=== PATIENT | female | born 1985 | race Caucasian/White ===

== ENCOUNTER 2023-01-14 13:02 | Outpatient (CLI) | payer OTHER ==
[2023-01-14 14:22] VITALS: BP 128/80
--- NOTE | 2023-01-14 14:22 | SLEEP CARE CONSULTATION ---
Information from patient questionnaire entered by Fito Stewart. I have reviewed and concur with the information entered by Fito Stewart. This document represents the service I personally performed and the decisions made by me, Asia Ramey ARNP. History of Present Illness Service Date and Time: 01/14/2023 1302 Reason for Visit: New patient, Previously diagnosed sleep apnea Accompanied by: Spouse Chief Complaint: reports: Other (SLEEP STUDY AND TITRATION STUDY COMPLETE) Date of Onset: YRS Usual bedtime: 9PM Time it takes to fall asleep: 30-60MINS Snores at night: Yes Observed to quit breathing while asleep: Yes Sleeps alone due to snoring: No Number of times waking at night: 2-3 Reasons for waking at night: reports: Gasping for air Toss, Turn, or Twitch while sleeping: Yes Recalls having dreams: Yes Usually gets out of bed at: 6AM Feels refreshed in the morning: No Morning headache: Yes (AFTER TYLENOL AND COFFEE) Sleepy or fatigued during the day: Yes Ever fallen asleep while driving: No Takes day naps: Yes Dreams during day naps: No Prior sleep studies: Yes Year and Where: 04/29/2022 [facility] [place] Additional HPI information: I had the pleasure of seeing JANNA OLVERA today. JANNA OLVERA was diagnosed to have severe, AHI 43.2, obstructive sleep apnea-hypopnea syndrome as seen in a sleep study dated 04/2022 through [facility] and comes in today with spouse to establish care for CPAP therapy. Patient also went through a titration study which showed optimal apnea control at 10 cm H2O. She had to move from the area before they could set her up with a CPAP machine. Her father, who has sleep apnea but does not use his machine, gave her his CPAP ResMed Airsense 10 to use that he had received in around 2018. This machine was adjusted to the 10 cm H2O and she has been using it nightly ever since. - Parasomnia Symptoms Ever been unable to move upon waking from sleep: No Walks in sleep: No Talks in sleep: Yes Ever acted out dreams in sleep: No Ever felt weak in the knees when startled or emotional: Yes (has not fallen down) Bothered by creepy, crawly, restless sensations in legs: Yes (restless legs resolved with CPAP) Problems with memory or concentration: Yes (improved with CPAP use) Subjective Patient concerns: denies: aerophagia, mask discomfort, air blowing in eyes, mask leak noise, condensation in mask/hose, nasal congestion, dry mouth, nose, throat, epistaxis Observed to snore while using device: No Current pressure setting perceived as: comfortable On therapy, patient: reports: sleeping better, awakening more refreshed, being more awake and alert during the day, more rested overall. 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 Patient is and lives in [place]. Have you smoked in the past 12 months: No Years of smokin Quit date: 2020 Alcohol use: No Caffeine use: Yes Caffeine amount and frequency: 1 CUP COFFEE/TEA DAILY Family History Family history of sleep disordered breathing: Yes Family Hx Sleep Apnea: Mother: Snoring, Sleep apnea - Treated, Father: Snoring, Sleep apnea - Treated, Sibling: Snoring Allergies and Home Medications Known drug allergies: Yes (CODIENE, SHELLFISH) Drug allergies reviewed: Yes Home medication list reviewed: Yes (see updated list in EMR) Review of Systems Weight gain over past 5 years: 30, since on prednisone in last 1.5 years Weight loss over past 5 years: 60 Cardiovascular: denies: high blood pressure Respiratory: reports: shortness of breath, wheeze Gastrointestinal: reports: heartburn, nausea Neurological: denies: headaches Psychiatric: reports: anxiety, depression, other (PTSD) Ear/Nose/Throat: reports: nasal congestion, nose bleeds, dry mouth/throat. denies: tonsillectomy Endocrine: reports: thyroid disease, sluggishness, too hot or cold, excessive thirst Musculoskeletal: reports: joint pain, back pain, muscle pain or cramping Immunologic: reports: sneezing, allergies to food or environment Physical Exam Vital signs obtained and entered by: FITO Hensley MA Blood Pressure: 128/80 (LEFT ARM) Cuff size: regular Heart Rate: 89 O2 Saturation: 98 Height: 5 ft 7 in Weight: 222 lb 6.4 oz Body Mass Index: 34.8 BMI Classification: Obese Neck circumference: 16 Mouth and throat: normal Soft palate: long Hard palate: normal Uvula: normal Uvula visualization: 100% Mallampati Class I Tongue: enlarged in size with teeth elizabeth on lateral edges Tonsils: 1+ Neck: normal w/o lymphadenopathy or thyromegaly Heart: regular rate and rhythm Lungs: clear bilaterally Impression and Plan 1. Obstructive Sleep Apnea-Hypopnea Syndrome, severe. Patient was diagnosed in 04/2022 but had to move and was not set up through her insurance with a CPAP. She has been using a borrowed CPAP from her father that was set at the titration study pressure of 10 cm H2O. She will bring in the SD card so we can get a download of her current data and compliance. Patient states she sleeps better and is more rested overall with using her CPAP and cannot sleep without it. Patient will be continued on a nasal CPAP therapy with pressure set at 10 cmH2O. Compliance guidelines also reviewed. A copy of compliance guidelines will be given for reference at check out. I will follow-up with her a month after she gets her new device to check compliance. * Continue Nasal CPAP therapy, pressure at 10 cm H2O. * Update supplies * Attempt to lose weight. * The patient is again cautioned about driving until sleepiness completely resolves. * Return one month after CPAP obtained. I will assess response to therapy and compliance at that time. Counseling Topics: Weight loss health impact Visit Type: In Office Other Participants: Spouse/Significant Other Time Spent with Patient (minutes): 35 Provider Statement: I spent 100% of the Face to Face Visit with the patient with greater than 50% spent counseling the patient and coordination of care.
== END 2023-01-14 13:03 | disposition home or self-care (01) ==
LOC: SC 13:02
PROVIDERS: ATTEND Nurse Practitioner Family
DX: G47.33 Obstructive sleep apnea (adult) (pediatric) (principal); E66.9 Obesity, unspecified; Z68.34 Body mass index [BMI] 34.0-34.9, adult
CPT/HCPCS: 99203; 99212

== ENCOUNTER 2023-06-30 07:59 | Emergency (ER) | payer OTHER ==
[2023-06-30] MEDS ORDERED: ONDANSETRON 4 MG/2 ML VIAL IVP STA (08:24)
[2023-06-30] MEDS ORDERED: SODIUM CHLORIDE 0.9% 1,000 ML IV STA (08:24)
--- NOTE | 2023-06-30 08:36 | ED Physician Documentation ---
PD HPI NVD - Stated complaint Stated Complaint: V/D/N - Chief complaint Chief Complaint: Abd Pain - History obtained from History obtained from: Patient - Additonal information Additional information: Patient is a 38-year-old female with a history of pulmonary sarcoidosis and anemia related to B12 and iron deficiency presenting for evaluation of a 2-day history of nausea, vomiting and diarrhea. Patient states that she ate a turkey sandwich at [employer] on Tuesday. Yesterday she started having numerous episodes of loose stools that appeared sam in texture. She denies blood in her stools. She was also having nausea. Today she has had a few episodes of emesis consisting of liquids and is not able to tolerate any p.o. intake. At the diarrhea is starting to improve in regards to less frequent. However she took Pepto-Bismol yesterday and has noticed a black appearance to her stools today. She does not take a blood thinner. She did have a colonoscopy in 2020 when she was being evaluated for her anemia. She is on prednisone and methotrexate. She is currently on her menstrual cycle. She feels chills. Denies recent travel, hospitalization or antibiotic use. Denies chest pain or shortness of air. Denies prior abdominal surgeries. Review of Systems Constitutional: reports: Chills Cardiac: denies: Chest pain / pressure Respiratory: denies: Dyspnea GI: reports: Vomiting, Diarrhea. denies: Abdominal Pain : denies: Dysuria PD PAST MEDICAL HISTORY - Present Medications Home Medications: Ambulatory Orders Medication Instructions Recorded Confirmed Albuterol See Rx Instructions .ROUTE .COMPLEX 01/14/23 01/14/23 Ascorbic Acid [Vitamin C] See Rx Instructions .ROUTE .COMPLEX 01/14/23 01/14/23 Azelastine HCl [Astepro Allergy] See Rx Instructions .ROUTE .COMPLEX 01/14/23 01/14/23 Escitalopram Oxalate [Lexapro] See Rx Instructions .ROUTE .COMPLEX 01/14/23 01/14/23 Fluticasone [Flonase] See Rx Instructions .ROUTE .COMPLEX 01/14/23 01/14/23 Fluticasone/Salmeterol [Advair See Rx Instructions .ROUTE .COMPLEX 01/14/23 01/14/23 250-50 Diskus] Iron Dextran [Infed] See Rx Instructions .ROUTE .COMPLEX 01/14/23 01/14/23 Levothyroxine Sodium [Synthroid] See Rx Instructions .ROUTE .COMPLEX 01/14/23 01/14/23 Liothyronine [Cytomel] See Rx Instructions .ROUTE .COMPLEX 01/14/23 01/14/23 Loratadine [Claritin] See Rx Instructions .ROUTE .COMPLEX 01/14/23 01/14/23 Mecobalamin [B12 Active] See Rx Instructions .ROUTE .COMPLEX 01/14/23 01/14/23 Melatonin See Rx Instructions .ROUTE .COMPLEX 01/14/23 01/14/23 Methotrexate [Methotrexate Sodium] See Rx Instructions .ROUTE .COMPLEX 01/14/23 01/14/23 Montelukast [Singulair] See Rx Instructions .ROUTE .COMPLEX 01/14/23 01/14/23 prednisoLONE [Millipred] See Rx Instructions .ROUTE .COMPLEX 01/14/23 01/14/23 Ondansetron Odt [Zofran] 4 mg TL Q6H PRN #10 tablet 06/30/23 - Allergies Allergies/Adverse Reactions: Allergies Allergy/AdvReac Type Severity Reaction Status Date / Time shellfish derived Allergy Emesis Verified 06/30/23 08:09 codeine AdvReac Emesis Verified 06/30/23 08:09 PD ED PE NORMAL - General General: Alert and oriented X 3, No acute distress, Well developed/nourished - HEENT HEENT: Atraumatic, Moist mucous membranes, Pharynx benign - Neck Neck: Supple, no meningeal sign - Cardiac Cardiac: RRR, No murmur - Respiratory Respiratory: No respiratory distress, Clear bilaterally - Abdomen Abdomen: Normal bowel sounds, Soft, Non tender, Non distended - Rectal Rectal: Other (Chaperoned by Sarah, no masses or abnormal lesions on palpation, dark-colored stools, no fidelina blood) - Derm Derm: Warm and dry - Neuro Neuro: Normal speech Results - Vitals Vitals: Vital Signs - 24 hr 06/30/23 06/30/23 08:06 10:45 Temperature 36.4 C L Heart Rate 101 H 79 Respiratory 20 18 Rate Blood Pressure 140/101 H 148/99 H O2 Saturation 98 100 Oxygen O2 Source Room air - Labs Labs: Microbiology 06/30/23 08:20 Occult Blood - Final Stool Laboratory Tests 06/30/23 06/30/23 06/30/23 08:30 08:30 10:26 WBC 13.3 H RBC 5.63 H Hgb 14.3 Hct 46.4 MCV 82.4 MCH 25.4 L MCHC 30.8 L RDW 15.2 H Plt Count 278 MPV 10.9 H Neut # (Auto) 11.5 H Lymph # (Auto) 0.8 L [place] # (Auto) 0.7 Eos # (Auto) 0.0 Baso # (Auto) 0.1 Absolute Nucleated RBC 0.00 Nucleated RBC % 0.0 Sodium 138 Potassium 3.6 Chloride 102 Carbon Dioxide 28 Anion Gap 8.0 BUN 9 Creatinine 1.2 Estimated GFR (MDRD) 50 L Glucose 101 Calcium 9.8 Total Bilirubin 0.6 AST 17 ALT 18 Alkaline Phosphatase 71 Total Protein 8.5 Albumin 4.9 Globulin 3.6 Albumin/Globulin Ratio 1.4 Lipase 12 Urine Color DARK YELLOW Urine Clarity HAZY Urine pH 6.0 Ur Specific [place] >=1.030 H Urine Protein NEGATIVE Urine Glucose (UA) NEGATIVE Urine Ketones 15 H Urine Occult Blood LARGE H Urine Nitrite NEGATIVE Urine Bilirubin NEGATIVE Urine Urobilinogen 0.2 (NORMAL) Ur Leukocyte Esterase NEGATIVE Urine RBC 0-5 Urine WBC 0-3 Ur Squamous Epith Cells MANY Squamous H Amorphous Sediment Few Urine Bacteria Moderate H Urine Mucus Moderate Strands Ur Microscopic Review INDICATED Urine Culture Comments NOT INDICATED Urine HCG, Qual NEGATIVE PD Medical Decision Making - ED course Complexity details: reviewed results, re-evaluated patient, d/w patient ED course: Patient is a 38-year-old female presenting for evaluation of nausea, vomiting and diarrhea for the past 2 days. Abdominal exam is benign. Vital signs are stable and she is overall well-appearing. Labs are reviewed and without significant findings. Patient is on her menses but UA does not suggest infection. She is feeling better here with IV fluids and Zofran. She has been taking Pepto-Bismol and so stools have been dark but Hemoccult is negative. Discussed continued supportive care as well as return precautions for any worsening symptoms. Departure - Departure Disposition: 01 Home, Self Care Clinical Impression: Nausea vomiting and diarrhea Condition: Stable Instructions: ED Diet Vomiting Diarrhea Prescriptions: Ondansetron Odt [Zofran] 4 mg TL Q6H PRN #10 tablet PRN Reason: Nausea / Vomiting Comments: You were evaluated for vomiting and diarrhea. Your labs are reassuring and your hemoglobin is stable and your electrolytes are normal. It appears that you are feeling better after receiving fluids and an antinausea medication through an IV. I sent a prescription for an oral form of the antinausea medication to [facility] in [place]. Please continue to stay hydrated today and start with bland food. You can advance your diet as tolerated. Return to the emergency department with any worsening symptoms. Your stool was negative for blood and is likely dark from recent Pepto-Bismol use. Forms: PCP List Discharge Date/Time: 06/30/23 11:16
[2023-06-30 08:37] LABS: BASOPHILS # (AUTO) 0.1 10^3/uL (0.0-0.1); BASOPHILS % (AUTO) 0.7 %; EOSINOPHILS % (AUTO) 0.2 %; HCT - HEMATOCRIT 46.4 % (37.0-47.0); HGB - HEMOGLOBIN 14.3 g/dL (12.0-16.0); LYMPHOCYTES # (AUTO) 0.8 10^3/uL (1.5-3.5); LYMPHOCYTES % (AUTO) 6.3 %; MEAN CORPUSCULAR HEMOGLOBIN 25.4 pg (27.0-31.0); MEAN CORPUSCULAR HGB CONC 30.8 g/dL (32.0-36.0); MEAN CORPUSCULAR VOLUME 82.4 fL (81.0-99.0); MEAN PLATELET VOLUME 10.9 fL (7.9-10.8); MONOCYTES # (AUTO) 0.7 10^3/uL (0.0-1.0); MONOCYTES % (AUTO) 5.3 %; NEUTROPHILS # (AUTO) 11.5 10^3/uL (1.5-6.6); NEUTROPHILS % (AUTO) 86.4 %; PLT - PLATELET COUNT 278 10^3/uL (130-450); RED BLOOD COUNT 5.63 10^6/uL (4.20-5.40); RED CELL DISTRIBUTION WIDTH 15.2 % (12.0-15.0); WHITE BLOOD COUNT 13.3 x10^3/uL (4.8-10.8)
[2023-06-30 09:00] LABS: ALBUMIN 4.9 g/dL (3.2-5.5); ALBUMIN/GLOBULIN RATIO 1.4 (1.0-2.2); BILIRUBIN,TOTAL 0.6 mg/dL (0.2-1.0); CALCIUM 9.8 mg/dL (8.5-10.3); CREATININE 1.2 mg/dL (0.6-1.3); POTASSIUM 3.6 mmol/L (3.5-4.5); TOTAL PROTEIN 8.5 g/dL (6.4-8.9)
[2023-06-30 10:35] LABS: BILIRUBIN,URINE NEGATIVE (NEGATIVE); GLUCOSE, URINE (UA) NEGATIVE (NEGATIVE); KETONES,URINE (UA) 15 mg/dL (NEGATIVE); LEUKOCYTE ESTERASE, URINE NEGATIVE (NEGATIVE); NITRITE,URINE NEGATIVE (NEGATIVE); OCCULT BLOOD,URINE LARGE (NEGATIVE); PROTEIN,URINE NEGATIVE (NEGATIVE); UROBILINOGEN,URINE 0.2 (NORMAL) E.U./dL (NORMAL)
[2023-06-30 10:42] LABS: CLARITY,URINE HAZY (CLEAR); HCG UR QUAL NEGATIVE
[2023-06-30 10:50] VITALS: BP 148/99; O2SAT 100
[2023-06-30 11:00] LABS: AMORPHOUS SEDIMENT,UR Few /LPF; BACTERIA,URINE Moderate /HPF (None Seen); MUCUS,URINE Moderate Strands; RBC,URINE 0-5 /HPF (0-5); SQUAMOUS EPITHELIAL CELL,UR MANY Squamous (<= Few); WBC,URINE 0-3 /HPF (0-5)
== END 2023-06-30 11:16 | disposition home or self-care (01) ==
LOC: ED 07:59
DX: R11.2 Nausea with vomiting, unspecified (principal); R19.7 Diarrhea, unspecified
CPT/HCPCS: 36415; 80053; 81001; 81003; 81025; 82272; 83690; 85025; 87086; 96361; 96374; 99283